=== PATIENT | female | born 1960 | race Caucasian/White ===

== ENCOUNTER 2023-04-09 15:16 | Outpatient (REF) | payer MEDICARE, MEDICAID, SELFPAY | END 2023-04-09 15:17 | disposition home or self-care (01) | LOC: HO.CHCLNP 15:16 | PROVIDERS: Visit Provider Internal Medicine | DX: L03.818 Cellulitis of other sites (principal) | CPT/HCPCS: 87070; 87077; 87186; 87205 ==

== ENCOUNTER 2023-05-31 08:02 | Outpatient (REF) | payer MEDICARE, MEDICAID, SELFPAY ==
[2023-05-31 14:11] LABS: MANUAL DIFF FLAG NO
[2023-05-31 14:31] LABS: Basophils Absolute Auto 0.1 X10*3/uL (0.0-0.2); Basophils Percent Auto 1.2 % (0-2); Eosinophils Absolute Auto 0.4 X10*3/uL (0.0-0.4); Eosinophils Percent Auto 5.4 % (0-4); Hematocrit 46.9 % (37.0-47.0); Hemoglobin 15.3 g/dl (12.0-16.0); Imm Gran Abs Auto 0.02 X10*3/uL (0.00-0.03); Imm Gran Pct Auto 0.3 % (0.0-0.4); Lymphocytes Absolute Auto 3.2 X10*3/uL (1.2-4.9); Lymphocytes Percent Auto 41.1 % (20-40); Mean Corpuscular HGB Conc 32.6 g/dl (31.0-35.0); Mean Platelet Volume 10.1 fL (9.4-12.3); Monocytes Absolute Auto 0.6 X10*3/uL (0.1-1.2); Monocytes Percent Auto 8.2 % (2-11); Neutrophils Absolute Auto 3.4 x10*3/uL (2.0-8.3); Neutrophils Percent Auto 43.8 % (45-73); Platelet Count 223 X10*3/uL (160-400); Red Cell Distribution Width 13.3 % (11.0-16.0); White Blood Count 7.8 X10*3/uL (4.8-10.8)
[2023-05-31 15:06] LABS: Alanine Aminotransferase 8 U/L (0-31); Albumin Level 4.4 g/dL (3.5-5.0); Alkaline Phosphatase 91 U/L (39-117); Anion Gap 15 (12-20); Aspartate Amino Transferase 14 U/L (5-31); Bilirubin Total 0.6 mg/dL (0.0-1.0); Blood Urea Nitrogen 13 mg/dL (9-16); Calcium 9.6 mg/dL (8.4-10.2); Carbon Dioxide 27 mmol/L (22-29); Chloride 107 mmol/L (96-108); Cholesterol 183 mg/dL (<200); Estimated Glomerular Filt Rate > 60; Glucose Fasting 75 mg/dL (60-99); HDL Cholesterol 40 mg/dL (>40); LDL Cholesterol Calculated 119 mg/dL (<100); Potassium 3.8 mmol/L (3.3-5.1); Sodium 145 mmol/L (135-145); Total Protein 7.4 g/dL (6.5-8.0); Triglycerides 120 mg/dL (<150)
[2023-05-31 15:14] LABS: TSH reflex Free T4 1.71 uIU/mL (0.32-4.0)
== END 2023-05-31 08:03 | disposition home or self-care (01) ==
LOC: HO.CHCLDS 08:02
PROVIDERS: Visit Provider Family Medicine
DX: E03.9 Hypothyroidism, unspecified (principal); E78.2 Mixed hyperlipidemia
CPT/HCPCS: 36415; 80053; 80061; 84443; 85025

== ENCOUNTER 2023-07-29 15:54 | Outpatient (REF) | payer MEDICARE, MEDICAID, SELFPAY ==
[2023-07-29 20:32] LABS: Influenza A PCR NEGATIVE (Negative); Influenza B PCR NEGATIVE (Negative); Resp Syncy Virus RNA Qual PCR NEGATIVE (Negative); SARS COV2 PCR INHOUSE NEGATIVE (Negative)
== END 2023-07-29 15:55 | disposition home or self-care (01) ==
LOC: HO.CHCLNP 15:54
PROVIDERS: Visit Provider Family Medicine
DX: J45.41 Moderate persistent asthma with (acute) exacerbation (principal)
CPT/HCPCS: 0241U

== ENCOUNTER 2023-08-09 08:37 | Outpatient (AMB) | payer MEDICARE, MEDICAID, SELFPAY ==
--- NOTE | 2023-08-09 08:43 | MHC.OFFVIS ---
Vital Signs 08/09/23 08:53 Height 5 ft 1 in Weight 156 lb BMI 29.5 BP 139/68 Blood Pressure Location Rt brachial Position Sitting Pulse 75 Intake Visit Reasons: soft tissue mass/lipoma back/shoulder Intake Note: Patient referred by PCP Dr. Condon for growths on Rt lower back and Lt shoulder. Present for yrs. Lipoma on Lt upper arm/ shoulder removed 30 yrs ago. Started growing back 5yrs ago. Patient c/o: concern because of multiple lipomas. Quoter Required: No Accompanied by: Self / Same As Patient Allergies No Known Allergies Allergy (Verified 08/09/23 08:55) HPI Comments Details: Patient presents for evaluation of several lipomas. She had a left shoulder lipoma excised several years ago but it has returned and increased in size. She also has 3 lower back lipomas which are symptomatic and she would like to have that removed as well. Chart was reviewed and patient evaluated [facility] Medical History (Updated 08/09/23 @ 08:58 by JULISSA Melissa) section wound complication Basal cell carcinoma of skin of left upper extremity, including shoulder Obesity (BMI 30-39.9) Mixed hyperlipidemia Fibromyalgia Hypothyroidism Moderate single current episode of major depressive disorder Anxiety Glaucoma Asthma Surgical History (Updated 08/09/23 @ 09:03 by Murray Julien MD) Tubal ligation status Hx of surgical procedure Social History (Updated 08/09/23 @ 08:59 by JULISSA Melissa) Patient Tobacco Use Status: Former Tobacco user Physical Exam Vital Signs: Last Vital Signs Pulse 75 08/09/23 08:53 BP 139/68 08/09/23 08:53 BMI result Body Mass Index 29.5 Chest Other: Chest breath sounds bilaterally, HS 1 in GI Other: Abdomen soft, corpulent, benign Back/Spine/Pelvis Other: Patient has a left deltoid scar from previous lipoma excision. She now has a recurrence of approximately 5 x 3 cm lipoma. Patient has 3 lipomas involving the lower back; upper measures 3 x 2 cm middle measures 3 x 3 and lower measures 3 x 2 cm respectively Assessment & Plan Assessment & Plan (1) Multiple lipomas: Code(s): D17.9 - Benign lipomatous neoplasm, unspecified Category: Surgical Plan Because of the number and size of these lipomas, my current recommendation is for excision and Ambulatory Surgical setting. Risks, benefits and alternatives of the procedure reviewed the patient included but not limited to bleeding, infection, recurrence, numbness, pain, scarring , seroma formation, wound dehiscence and the patient wishes to proceed. All questions answered. Arrangements were made for this. Coding Level of Care Code New Pt Level 5 (04934) Diagnoses Multiple lipomas D17.9
[2023-08-09 08:53] VITALS: BP 139/68; PULSE 75; BMI 29.5
== END 2023-08-09 09:17 | disposition home or self-care (01) ==
PROVIDERS: Visit Provider Surgery
DX: D17.9 Benign lipomatous neoplasm, unspecified (principal)
CPT/HCPCS: 99204

== ENCOUNTER → 2023-08-09 08:37 | Outpatient (BNVA) | payer MEDICARE, MEDICAID, SELFPAY | PROVIDERS: Visit Provider Surgery | DX: D17.9 Benign lipomatous neoplasm, unspecified (principal) | CPT/HCPCS: 99202 ==

== ENCOUNTER 2023-09-03 05:48 | Day surgery (SDC) | payer MEDICARE, MEDICAID, SELFPAY ==
[2023-08-31 10:48] VITALS: BMI 29.5
--- NOTE | 2023-09-02 09:37 | HO.ANESPROP2 ---
Documented by User: Elma Doan NP 09/02/23 09:38 HPI - Anesthesia Eval Consult details Narrative: 63yo F for Excision Left Shoulder Lipoma and Lower Back Lipoma x3 PMFSH Active Problems Active Problems: All Active Problems Multiple lipomas (Acute) Past Medical History Medical History section wound complication Basal cell carcinoma of skin of left upper extremity, including shoulder Obesity (BMI 30-39.9) Mixed hyperlipidemia Fibromyalgia Hypothyroidism Moderate single current episode of major depressive disorder Anxiety Glaucoma Asthma Surgical History Surgical History Hx of section Tubal ligation status Hx of surgical procedure Social History Social History Patient Tobacco Use Status: Former Tobacco user Are you DNR?: No Advance Directives: No Advance Directives Information Provided: Yes Nutrition Risks: No Nutritional Risk Meds Allergies Allergy/AdvReac Type Severity Reaction Status Date / Time No Known Allergies Allergy Verified 08/09/23 08:55 Home Medications ?Medication ?Instructions ?Recorded ?Confirmed ?Last Taken ?Type levothyroxine 137 mcg capsule 137 mcg PO DAILY 08/09/23 08/31/23 09/02/23 History rosuvastatin 40 mg tablet 40 mg PO DAILY 08/09/23 08/31/23 09/02/23 History albuterol sulfate 90 mcg/actuation 2 puff inhalation Q4-6H PRN 08/31/23 08/31/23 08/31/23 History aerosol inhaler (Ventolin HFA) Shortness Of Breath Or Wheezing fluticasone furoate 200 1 inh inhalation DAILY 08/31/23 08/31/23 08/31/23 History mcg/actuation blister powder for inhalation (Arnuity Ellipta) Exam Height,Weight and Vital Signs: Height 5 ft 1 in Weight 70.76 kg Pertinent Lab Results Pertinent Lab Results: Laboratory Tests 05/31/23 08:06 WBC 7.8 Hgb 15.3 Hct 46.9 Plt Count 223 Sodium 145 Potassium 3.8 Chloride 107 Carbon Dioxide 27 BUN 13 Creatinine 0.89 Assessment and Plan Assessment Anesthesia Assessment: Chart Reviewed Documented by User: Amber Guzman MD 09/03/23 08:05 PMFSH Active Problems Active Problems: All Active Problems Multiple lipomas (Acute) Hyperlipidemia Hypothyroidism Asthma - inhalers prn Past Medical History Medical History section wound complication Basal cell carcinoma of skin of left upper extremity, including shoulder Obesity (BMI 30-39.9) Mixed hyperlipidemia Fibromyalgia Hypothyroidism Moderate single current episode of major depressive disorder Anxiety Glaucoma Asthma Family History Family history of problems with anesthesia: No Surgical History Surgical History Hx of section Tubal ligation status Hx of surgical procedure History of Problems with Anesthesia: No Social History Social History Patient Tobacco Use Status: Former Tobacco user Are you DNR?: No Advance Directives: No Advance Directives Information Provided: Yes Nutrition Risks: No Nutritional Risk Meds Allergies Allergy/AdvReac Type Severity Reaction Status Date / Time No Known Allergies Allergy Verified 08/09/23 08:55 Home Medications ?Medication ?Instructions ?Recorded ?Confirmed ?Last Taken ?Type levothyroxine 137 mcg capsule 137 mcg PO DAILY 08/09/23 08/31/23 09/02/23 History rosuvastatin 40 mg tablet 40 mg PO DAILY 08/09/23 08/31/23 09/02/23 History albuterol sulfate 90 mcg/actuation 2 puff inhalation Q4-6H PRN 08/31/23 08/31/23 08/31/23 History aerosol inhaler (Ventolin HFA) Shortness Of Breath Or Wheezing fluticasone furoate 200 1 inh inhalation DAILY 08/31/23 08/31/23 08/31/23 History mcg/actuation blister powder for inhalation (Arnuity Ellipta) Exam Height,Weight and Vital Signs: Height 5 ft 1 in Weight 70.76 kg Vital Signs Temp Pulse Resp BP Pulse Ox O2 Del Method 09/03/23 06:07 98.4 F 94 18 152/86 H 97 Room Air Airway Mallampati Class: II TM Dist: >3cm Neck ROM: Full Loose/Missing/Broken Teeth: Yes (No teeth top, few teeth bottom. Denies broken or loose teeth) Heart: RRR Lungs: CTAB Assessment and Plan Assessment Anesthesia Assessment: Anesthesia Plan Discussed and Chart Reviewed Final Anesthetic Review Family History of Problems with Anesthesia: No History of Problems with Anesthesia: No NPO: Yes ASA Class: II Final Preanesthetic Review: No Changes in Pt Med Stat, Meds/Allgs Chart Reviewed, Consent Obtained/Reviewed and Anes Risks/Benef Reviewed Patient Risk: Low Procedure Risk: Low Assessment/Block/Sedation in SS: Assess/Block/Sedation-SS Anesthetic Plan Anesthetic Plan: GA Disposition: Standard PACU
--- NOTE | 2023-09-02 10:06 | MHC.SHP ---
Pre-Procedural Eval Section A - 24 Hr Update-Section A only Date of Service: 09/03/23 The patient is an INPATIENT: No Changes since office visit: No Cold of Flu in the past 2 weeks, No New Medical Problems, No Changes in Medication and No Patient answered all questions Section B - Complete if H&P > 30 days Chief Complaint: Benign lipomatous neoplasm, Allergies: Allergies Allergy/AdvReac Type Severity Reaction Status Date / Time No Known Allergies Allergy Verified 08/09/23 08:55 Plan I have reviewed the history and physical and performed a pertinent physical examination on my patient. No changes have occurred unless specified. Time Spent With Patient Time: Total time managing care of this patient today ____ minutes.
[2023-09-03 06:07] VITALS: BP 152/86; PULSE 94; RESP 18; TEMP 36.9; O2SAT 97; BMI 29.7
[2023-09-03] MEDS: Lactated Ringers 1,000 ML 100 ML IVCONT (06:30)
[2023-09-03 08:25] VITALS: BP 140/74; PULSE 88; RESP 18; TEMP 36.1; O2SAT 95
[2023-09-03 08:30] VITALS: BP 143/79; PULSE 83; RESP 16; O2SAT 95
[2023-09-03 08:35] VITALS: BP 143/79; PULSE 86; RESP 16; O2SAT 98
[2023-09-03 08:40] VITALS: BP 153/77; PULSE 77; RESP 16; O2SAT 98
--- NOTE | 2023-09-03 08:43 | P.OP_ITS ---
Operative Note Operative Note Date of Service: 09/03/23 Narrative: Preoperative diagnosis: [] Multiple lipomas; recurrent left shoulder lipoma, right lower back medial and lateral lipomas Postop diagnosis: [] The same Procedure [] 1. Wide local excision recurrent left shoulder lipoma final specimen measuring approximately 5 x 4 cm. Medial right lower back lipoma measuring approximately 3 x 3 cm. Lateral right lower back lipoma measured approximately 4 x 3 cm Surgeon: [] Wily Warehouse Sorter: [] Diego Type of Anesthesia: [] General Indication for surgery: [] Symptomatic lipomas with size/dimensions as noted above Findings: [] Patient brought to the operating room, placed on operative table supine position, after an adequate level of general anesthesia was induced, patient was placed in the right lateral decubitus position. Left posterior shoulder and back were all prepped and draped in usual sterile fashion. Each area was approached using transverse incision and carried down through skin, subcutaneous tissue, were uneventful excision of respective lipomas were performed. The left shoulder one was a recurrent lipoma which have been excised several years ago but had recurred. Each wound was irrigated, secured hemostasis, and closed using interrupted in verted dermal 3-0 Vicryl sutures followed by Steri-Strips sterile dressings. Patient tolerated procedure well and emerged from anesthesia stable condition. EBL minimal Sponge, needle, and instrument counts reported correct.
[2023-09-03 08:55] VITALS: BP 136/70; PULSE 86; RESP 16; TEMP 36.1; O2SAT 96
== END 2023-09-03 09:11 | disposition home or self-care (01) ==
PROVIDERS: PCP Family Medicine; Visit Provider Surgery
PROC: (CPT 24071; principal; 2023-09-03 07:30)
DX: D17.22 Benign lipomatous neoplasm of skin and subcutaneous tissue of left arm (principal); D17.1 Benign lipomatous neoplasm of skin and subcutaneous tissue of trunk
CPT/HCPCS: 24071; 21931 ×2; 88304; J0131; J0690; J1100; J2250; J2405; J2704; J2795; J3010

== ENCOUNTER → 2023-09-03 05:48 | Outpatient (BNV) | payer MEDICARE, MEDICAID, SELFPAY | PROVIDERS: PCP Family Medicine; Visit Provider Surgery | DX: D17.1 Benign lipomatous neoplasm of skin and subcutaneous tissue of trunk (principal); D17.22 Benign lipomatous neoplasm of skin and subcutaneous tissue of left arm | CPT/HCPCS: 21931; 23071 ==

== ENCOUNTER 2023-09-13 11:34 | Outpatient (AMB) | payer MEDICARE, MEDICAID, SELFPAY ==
--- NOTE | 2023-09-13 11:38 | A.OFFVIS_ITS ---
Intake Visit Reasons: S/P excision multiple lipomas Intake Note: Patient here s/p excision multiple lipomas. Lt shoulder, Rt lower back X2 (medial and lateral). Reports incisions healing well. Patient c/o: steri strips still present. Denies pain, oozing, redness. No longer taking rx pain meds. WLE: 09-03-23. Cut Off Saw Operator Metal Required: No Accompanied by: Self / Same As Patient Allergies No Known Allergies Allergy (Verified 09/13/23 11:39) HPI Comments Details: Patient presents for follow-up. She has no wound issues or complaints. All pathology reports are benign [facility] Medical History section wound complication Basal cell carcinoma of skin of left upper extremity, including shoulder Obesity (BMI 30-39.9) Mixed hyperlipidemia Fibromyalgia Hypothyroidism Moderate single current episode of major depressive disorder Anxiety Glaucoma Asthma Surgical History Multiple lipomas (09/03/23) Hx of section Tubal ligation status Hx of surgical procedure Social History Patient Tobacco Use Status: Former Tobacco user Physical Exam Skin Other: Left shoulder and right lower back incisions all clean dry and intact healing well Assessment & Plan Assessment & Plan (1) Postop check: Code(s): Z09 - Encounter for follow-up examination after completed treatment for conditions other than malignant neoplasm Category: Medical Plan Patient was been given local instructions, and will otherwise follow-up p.r.n.. All questions answered. Coding Level of Care Code Global (64908) Diagnoses Postop check Z09
== END 2023-09-13 11:43 | disposition home or self-care (01) ==
PROVIDERS: Visit Provider Surgery
DX: Z09 Encounter for follow-up examination after completed treatment for conditions other than malignant neoplasm (principal)
CPT/HCPCS: 99024

== ENCOUNTER → 2023-09-13 11:34 | Outpatient (BNVA) | payer MEDICARE, MEDICAID, SELFPAY | PROVIDERS: Visit Provider Surgery | DX: Z09 Encounter for follow-up examination after completed treatment for conditions other than malignant neoplasm (principal) | CPT/HCPCS: 99212 ==

== ENCOUNTER 2024-07-25 08:04 | Outpatient (REF) | payer MEDICARE, MEDICAID, SELFPAY ==
--- OUTSIDE RECORDS SUMMARY | 2024-07-25 08:09 | XMS_ITS | Encounter Summary ---
Author Organization [employer] Address [address] [facility] [address] [place] [address] Care Team Providers Care Nursing Project Coordinator Name Role Phone Rebekah Condon MD Primary Care Provider [phone] Reason for Visit * Reason Onset Date Comments Appointment Request 04/24/2024 Encounter Details Date Type Department Care Team ([facility] Contact Info) Description 04/24/2024 Telephone [facility] [address] [place], [place] [phone] Rebekah Condon MD [address] [place] [address] Appointment Request Social History Tobacco Use Types Packs/Day Years Used Date Smoking Tobacco: Former Cigarettes Q uit: 03/22/2012 Passive Smoke Exposure: Past Smokeless Tobacco: Never Alcohol Use Standard Drinks/Week Comments Never 0 (1 standard drink = 0.6 oz pur e alcohol) Depression Answer Date Recorded Patient Health Questionnaire-9 Score 0 08/26/2023 Patient Health Questionnaire-9 Score 0 08/26/2023 Last PHQ-9: Questionnaire Data Not on file 0 08/26/2023 Housing Stability Answer Date Recorded What is your housing situation today? I have margareth rosado 08/19/[address] you li ve. Do you have problems with any of the following? None of the above 08/19/2023 Food Insecurity Answer Date Recorded Within the past 12 months, y ou worried that your food would run out before you got money to buy more: Never True 08/19/2023 Within the past 12 months,th e food you bought just didn't last and you didn't have enough money to get more: Never True Transportation Answer Date Recorded In the past 12 months, has l ack of transportation kept you from medical appts, meetings, work or from getting things needed for daily living? No 08/19/2023 Utilities Answer Date Recorded In the past 12 months, has t he electric, gas, oil or water company threatened to shut off services in your home? No 08/19/2023 Depression Answer Date Recorded Patient Health Questionnaire-2 Score 0 08/26/2023 Comments Unknown Sex and Gender Information Value Date Recorded Sex Assigned at Female 01/19/2022 10:22 AM EDT Legal Sex Female 10:22 AM EDT Gender Identity Female 01/19/2022 10:22 AM EDT Sexual Orientation Straight 01/19/2022 10 :22 AM EDT documented as of this encounter Miscellaneous Notes * Telephone Encounter - April Argueta - 04/24/2024 11:01 AM EST Tc from pt requesting to schedule derm F/u. documented in this encounter Plan of Treatment Upcoming Encounters Date Type Department Care Team (Late st Contact Info) Description 08/04/2024 1:00 PM EDT Office Visit [facility] MED & PEDS [address] [place] [address] Rebekah Condon MD [address] [place] [address] 12/11/2024 10:00 AM EDT Office Visit [facility] ADULT DENTAL [address] [place] [address] Ezekiel Koch documented as of this encounter Visit Diagnoses Not on filedocumented in this encounter Additional Health Concerns Assessment Noted Time PHQ-9 Depression Total Score: 0 08/26/19 24 11:34 AM EDT documented as of this encounter Care Teams Nursing Project Coordinator Relationship Specialty Start Date End Date Rebekah Condon MD [address] [place] [id number] PCP - General Family Medicine 10/13/21 documented as of this encounter
--- OUTSIDE RECORDS SUMMARY | 2024-07-25 08:09 | XMS_ITS | Encounter Summary ---
Author Organization [employer] Address [address] [facility] [address] [place] [address] Care Team Providers Care Head Golf Coach Name Role Phone Rebekah Condon MD Primary Care Provider [phone] Encounter Details Date Type Department Care Team ([facility] Contact Info) Description 12/14/2022 Abstract [facility] MED [facility] PEDS [address] [place], [place] [phone] Rebekah Condon MD [address] [place] [address] Social History Tobacco Use Types Packs/Day Years Used Date Smoking Tobacco: Former Cigarettes Q uit: 03/22/2012 Passive Smoke Exposure: Past Smokeless Tobacco: Never Alcohol Use Standard Drinks/Week Comments Never 0 (1 standard drink = 0.6 oz pur e alcohol) Depression Answer Date Recorded Patient Health Questionnaire-9 Score 1 06/25/2022 Depression Answer Date Recorded Patient Health Questionnaire-2 Score 0 06/25/2022 Comments Unknown Sex and Gender Information Value Date Recorded Sex Assigned at Female 01/19/2022 10:22 AM EDT Legal Sex Female 10:22 AM EDT Gender Identity Female 01/19/2022 10:22 AM EDT Sexual Orientation Straight 01/19/2022 10 :22 AM EDT documented as of this encounter Plan of Treatment Upcoming Encounters Date Type Department Care Team ([facility] Contact Info) Description 08/04/2024 1:00 PM EDT Office Visit [facility] MED [facility] PED[facility] [address] [place], [place] [phone] Rebekah Condon MD [address] [place], [place] [phone] 12/11/2024 10:00 AM EDT Office Visit [facility] AD[facility] [address] [place] [address] Ezekiel Koch documented as of this encounter Visit Diagnoses Not on filedocumented in this encounter Additional Health Concerns Assessment Noted Time PHQ-9 Depression Total Score: 1 06/26/19 23 10:02 AM EDT documented as of this encounter Care Teams Head Golf Coach Relationship Specialty Start Date End Date Rebekah Condon MD [address] [place] [id number] PCP - General Family Medicine 10/13/21 documented as of this encounter
--- OUTSIDE RECORDS SUMMARY | 2024-07-25 08:10 | XMS_ITS | Encounter Summary ---
Author Organization [employer] Address [address] [facility] [address] [facility] [address] [place] [address] Care Team Providers Care Spin Table Operator Name Role Phone Rebekah Condon MD Primary Care Provider [phone] Encounter Details Date Type Department Care Team (Latest Contact Info) Description 07/21/2024 Travel Social History Tobacco Use Types Packs/Day Years Used Date Smoking Tobacco: Former Cigarettes Q uit: 03/22/2012 Passive Smoke Exposure: Past Smokeless Tobacco: Never Alcohol Use Standard Drinks/Week Comments Never 0 (1 standard drink = 0.6 oz pur e alcohol) Depression Answer Date Recorded Patient Health Questionnaire-9 Score 4 07/21/2024 Patient Health Questionnaire-9 Score 4 07/21/2024 Last PHQ-9: Questionnaire Data Not on file 0 07/21/2024 Housing Stability Answer Date Recorded What is your housing situation today? I have margareth rosado 08/19/[address] you li ve. Do you have problems with any of the following? None of the above 08/19/2023 Food Insecurity Answer Date Recorded Within the past 12 months, y ou worried that your food would run out before you got money to buy more: Sometimes True 2024 Within the past 12 months,th e food you bought just didn't last and you didn't have enough money to get more: Sometimes True 07/14/2024 Transportation Answer Date Recorded In the past [...] Answer Date Recorded Patient Health Questionnaire-2 Score 2 07/21/2024 Internet Access Answer Date Recorded Internet Access Q1 Yes 07/14/2024 Internet Access Q2 Not on file 07/14/2024 Comments Unknown Sex and Gender Information Value [...] Description 08/04/2024 1:00 PM EDT Office Visit [facility] MED & PEDS [address] [place] [address] Rebekah Condon MD [address] [place] [address] 12/11/2024 10:00 AM EDT Office Visit [facility] ADULT DENTAL [address] [place] [address] Ezekiel Koch documented as of this encounter Visit Diagnoses Not on filedocumented in this encounter Additional Health Concerns Assessment Noted Time PHQ-9 Depression Total Score: 4 07/22/19 25 9:40 AM EDT documented as of this encounter Care Teams Spin Table Operator Relationship Specialty Start Date End Date Rebekah Condon MD [address] [place] [id number] PCP - General Family Medicine 10/13/21 documented as of this encounter
--- OUTSIDE RECORDS SUMMARY | 2024-07-25 08:10 | XMS_ITS | Clinical Summary ---
Author Organization [employer] Address [address] [facility] [address] [place] [address] Care Team Providers Care Sample Cutter Name Role Phone Rebekah Condon MD Primary Care Provider [phone] Allergies No known active allergies Medications Blood Pressure kit Active triamcinolone (Kenalog) 0.5 % ointment Apply 1 application topically in the morning and at bedtime. Appy by topical route 2 times every day a thin layer to the affected area Active Arnuity Ellipta 200 MCG/ACT inhaler INHALE 1 PUFF IN THE MORNING. RINSE MOUTH WITH WATER AFTER USE TO REDUCE AFTERTASTE AND INCIDENCE OF CANDIDIASIS. DO NOT SWALLOW. 30 each 11 4 Active ibuprofen 400 MG tablet Take 1 tablet (400 mg) by mouth every 6 (six) hours if needed for moderate pain or fever for up to 30 doses. 30 tablet 4 Active albuterol 108 (90 Base) MCG/ACT inhalerIndicati ons:Asthma, unspecified asthma severity, unspecified whether complicated, unspecified whether persistent INHALE 2 PUFFS BY MOUTH EVERY 4 TO 6 HOURS NEEDED 8.5 g 5 4 Active levothyroxine (Synthroid, Levoxyl) 137 MCG tablet TAKE 1 TABLET BY MOUTH EVERY DAY 90 tablet 1 5 Active rosuvastatin (Crestor) 40 MG tablet TAKE 1 TABLET BY MOUTH EVERY DAY IN THE MORNING 90 tablet 1 5 Active pregabalin (Lyrica) 75 MG capsule Take 1 capsule (75 mg) by mouth 2 times daily. 60 capsule 2 5 Active gabapentin (Neurontin) 300 MG capsule Take 1 capsule (300 mg) by mouth at bedtime. 90 capsule 1 5 025 Discontin ued(Side effects) Active Problems Problem Noted Date Diagnosed Date RLS (restless legs syndrome) 07/21/2024 Elevated blood pressure reading 07/21/2024 Multiple lipomas 07/19/2024 Basal cell carcinoma (BCC) o f skin of left upper extremity including shoulder 07/29/2023 Assessment & Plan (08/26/2023 1:33 PM EDT): Pt was able to see physician, however, no surgery date has been determined as of yet. -F/u on details with pt during next visit Assessment & Plan (07/29/2023 3:53 PM EDT): Patient has biopsy proven recurrent of BCC, a referral was 06/14/[address] Koch to be sent for Mohs surgery, contacted referral department unclear why referral was cancelled, they work on the referral. Soft tissue mass 05/31/2023 Assessment & Plan (08/26/2023 1:25 PM EDT): Pt will be having surgery for four Lipomas on September 02 Assessment & Plan (07/29/2023 3:52 PM EDT): Patient referred to general surgeon for soft tissue mass, suspected lipomas on right lower back and left shoulder, [place] [facility] [place] & Plan (05/31/2023 10:46 PM EDT): Patient referred to general surgeon for soft tissue mass, suspected lipomas on right lower back and left shoulder Acquired hypothyroidism 02/25/2022 Assessment & Plan (06/25/2022 10:41 AM EDT): Will check levels. Fibromyalgia 02/25/2022 Mild intermittent asthma 02/25/2022 Mixed hyperlipidemia 02/25/2022 Obesity (BMI 30-39.9) 02/25/2022 Anxiety 01/25/2017 Moderate single current epis ode of major depressive disorder 01/25/2017 Asthma 07/07/2013 Assessment & Plan (08/26/2023 1:28 PM EDT): Course of treatment has been successful and pt asthma's exacerbations have improved. Assessment & Plan (07/29/2023 3:51 PM EDT): Patient has severe asthma exacerbation, will prescribe prednisone and azithromycin given bronchial element. RTC if no improvement, rapid testing are negative Assessment & Plan (06/25/2022 10:41 AM EDT): Will send steroid burst and will start on ICS, informed patient that if insurance doesn't cover to please inform us to do start a PA process or find alternatives. Glaucoma 07/07/2013 Encounters Date Type Department Care Team Description 07/24/2024 Telephone [facility] [address] [place] [address] Rebekah Condon MD Nurse Triage; Medication Question 07/21/2024 9:45 AM EDT Office Visit [facility] [address] [place] [address] Rebekah Condon MD RLS (restless legs syndrome) (Primary Dx); Fibromyalgia; Abnormal finding of blood chemistry, unspecified; Abnormal levels of other serum enzymes; Acquired hypothyroidism; Elevated blood pressure reading 07/21/2024 Travel 07/14/2024 Patient Outreach [facility] [address] [place] [address] [phone] Rebekah Condon MD Care Coordination ([facility] outreach for SDOH PT-1 and food needs-LVM ) 07/14/2024 Patient Outreach [address] [address] Rebekah Condon MD Pre-visit Planning (SDOH screening positive and Tobacco screening negative) 06/20/2024 10:30 AM EDT Office Visit [facility] [address] [place] [address] Jesus Koch MD Basal cell carcinoma (BCC) of skin of left upper extremity including shoulder (Primary Dx) 06/20/2024 Travel 06/18/2024 Refill [facility] [address] [place] [address] Rebekah Condon MD 06/07/2024 10:00 AM EDT Office Visit [facility] [address] [place] [address] Ezekiel Koch Dental calculus (Primary Dx) 06/02/2024 Population Health Risk Score [facility] () Department [address] [place] [phone] Provider, Population Health Generic 04/30/2024 Refill [facility] [address] [place] [address] Iza Victor MD from Last 3 Months Immunizations Name Administration Dates Next Due Influenza Injectable Quadriv alant Preservative Free IIV4 MDCK 12/01/2021,02/11/2021,11/29/2018,2016 Influenza Whole 04/25/2009 Influenza injectable quadriv alent preservative free 11/05/2022,11/29/2017,11/12/2015 Influenza, IIV3, injectable 11/29/2018,0 12/19/2017,02/01/2013,2011,12/25/2009 Influenza, seasonal, injecta ble, preservative free 03/17/2024 Pneumococcal Conjugate PCV 20 11/05/2022 Td (adult), unspecified 12/26/2008 Tdap 11/24/2016 Zoster, Recombinant 11/03/2022,08/31/2022 Social History Tobacco Use Types Packs/Day Years Used Date Smoking Tobacco: Former Cigarettes Q uit: 03/22/2012 Passive Smoke Exposure: Past Smokeless Tobacco: Never Tobacco Cessation:Counseling Given: Not Answered Alcohol Use Standard Drinks/Week Comments Never 0 (1 standard drink = 0.6 oz pur e alcohol) Depression Answer Date Recorded Patient Health Questionnaire-9 Score 4 07/21/2024 Patient Health Questionnaire-9 Score 4 07/21/2024 Last PHQ-9: Questionnaire Data Not on file 0 07/21/2024 Housing Stability Answer Date Recorded What is your housing situation today? I have margareth sing 08/19/[address] you li [...] Orientation Straight 01/19/2022 10 :22 AM EDT Last Filed Vital Signs Vital Sign Reading Time Taken Comments Blood Pressure 146/74 07/21/2024 10:19 AM EDT Pulse 62 07/21/2024 9:32 AM EDT Temperature 36.7 ??C (98.1 ??F) 07/21/2024 9:32 AM ED T Respiratory Rate 18 07/21/2024 9:32 AM EDT Oxygen Saturation 98% 07/21/2024 9:32 AM EDT Inhaled Oxygen Concentration - - Weight 69.1 kg (152 lb 6.4 oz) 07/21/2024 9:32 A M EDT Height 158 cm (5' 2.21 ) 07/21/2024 9:32 AM EDT Body Mass Index 27.69 07/21/2024 9:32 AM EDT Plan of Treatment Upcoming Encounters Date Type Department Care Team (Late st Contact Info) Description 08/04/2024 1:00 PM EDT Office Visit [facility] [address] [place] [address] Rebekah Condon MD [address] [place] [address] 12/11/2024 10:00 AM EDT Office Visit [facility] [address] [place] [address] Ezekiel Koch Health Maintenance Due Date Last Done Comments CT Colonography 1959 Colonoscopy 1959 FIT 1959 FOBT 1959 HIV Screening 1959 Sigmoidoscopy 1959 Derm Melanoma Skin Check 02/16/1960 Hepatitis C Screening 08/15/1977 Pap Smear 08/15/1980 Cervical Cancer Screening 08/15/1989 HPV/Cotest 08/15/1989 Mammogram 1999 RSV Patients and Patients Aged 60 years or older (1 - Risk 60-74 years 1-dose series) 2019 Dental X-Ray: Bitewings 08/26/2019 08/25/19, 06/15/2017, 04/29/2016, Additional history exists Dental X-Ray: Full Mouth 12/28/2022 12/28/2019, 05/20 Dental Oral Exam 12/09/2024 06/07/2024, , 06/28/2020, Additional history exists Dental Prophylaxis 12/09/2024 06/07/2024, 0 06/03/2023, 02/28/2019, Additional history exists SDOH Screening 07/14/2025 07/14/2024 Alcohol/Substance Use Screening 07/21/2025 07/21/2024 Depression Screening 07/21/2025 07/21/2024, 07/22/19 Tobacco Screening 07/21/2025 07/21/2024 Colorectal Cancer Screening 06/07/2026 FIT DNA/Cologuard 06/07/2026 06/08/2023 DTaP/Tdap/Td Vaccines (2 - Td or Tdap) 11/24/2026 11/24/2016, 12/26/2008 Lipid Panel 05/30/2028 05/31/2023, 10/17/2021 Zoster Vaccines Completed 11/03/2022, 08/31/2022 Pneumococcal Vaccine: 50+ Years Completed 11/05/2022 COVID-19 Vaccine Completed 03/17/2024, , 12/01/2021, Additional history exists Influenza Vaccine Completed 03/17/2024, , 12/01/2021, Additional history exists HIB Vaccines Aged Out No longer eligi ble based on patient's age to complete this topic HPV Vaccines Aged Out No longer eligi ble based on patient's age to complete this topic Hepatitis A Vaccines Aged Out No long er eligible based on patient's age to complete this topic Hepatitis B Vaccines Aged Out No long er eligible based on patient's age to complete this topic IPV Vaccines Aged Out No longer eligi ble based on patient's age to complete this topic Meningococcal Vaccine Aged Out No elpidio chaz eligible based on patient's age to complete this topic RSV under 20 months Aged Out No longe r eligible based on patient's age to complete this topic Rotavirus Vaccines Aged Out No longer eligible based on patient's age to complete this topic Procedures Procedure Name Priority Date/Time Associated Diagnosis Comments PERIODIC ORAL EVALUATION - ESTABLISHED PATIENT Routine 06/07/2024 10:00 AM EDT COMPREHENSIVE PERIODONTAL EVALUATION - NEW OR ESTABLISHED PATIENT Routine 06/07/2024 10:00 AM EDT INTRAORAL - PERIAPICAL EACH ADDITIONAL RADIOGRAPHIC IMAGE Routine 06/07/2024 10:00 AM EDT INTRAORAL - PERIAPICAL EACH ADDITIONAL RADIOGRAPHIC IMAGE Routine 06/07/2024 10:00 AM EDT INTRAORAL - PERIAPICAL EACH ADDITIONAL RADIOGRAPHIC IMAGE Routine 06/07/2024 10:00 AM EDT INTRAORAL - PERIAPICAL FIRST RADIOGRAPHIC IMAGE Routine 06/07/2024 10:00 AM EDT ORAL HYGIENE INSTRUCTIONS Routine 06/07/2024 10:00 AM EDT Full PROPHYLAXIS - ADULT Routine 06/07/2024 10:00 AM EDT CASE PRESENTATION, DETAILED AND EXTENSIVE TREATMENT PLANNING Routine 06/07/2024 10:00 AM EDT LAB COLOGUARD?? COLON CANCER SCREEN Routine 06/08/2023 7:05 AM EDT Colon cancer screening LIPID PANEL, STANDARD Routine 05/31/2023 8:06 AM EDT Neoplasm of uncertain behavior PANORAMIC RADIOGRAPHIC IMAGE Routine 12/28/2019 12:00 AM EDT BITEWINGS - 4 RADIOGRAPHIC IMAGES Routine 08/24/2018 12:00 AM EDT from Last 3 Months or Most Recently Relevant to Health Maintenance Results * Cologuard?? colon cancer screening (06/08/2023 7:05 AM EDT) Cologuard Result Negative Negative 06/15/19 6:09 PM EDT [facility] (CLIA #:[id number]) Comment: NEGATIVE TEST RESULT. A negative Cologuard result indicates a low likelihood that a colorectal cancer (CRC) or advanced adenoma (adenomatous polyps with more advanced pre-malignant features) ??is present. The chance that a person with a negative Cologuard test has a colorectal cancer is less than 1 in 1500 (negative predictive value >99.9%) or has an ??advanced adenoma is less than ??5.3% (negative predictive value 94.7%). These data are based on a prospective cross-sectional study of 10,000 individuals at average risk for colorectal cancer who were screened with both Cologuard and colonoscopy. (Domingo Manriquez al, N Engl J Med 2014;370(14):1286- 1297) The normal value (reference range) for this assay is negative. COLOGUARD RE-SCREENING RECOMMENDATION: Periodic colorectal cancer screening is an important part of preventive healthcare for asymptomatic individuals at average risk for colorectal cancer. ??Following a negative Cologuard result, the [place] [employer] and U.S. Multi-Society Task Force screening guidelines recommend a Cologuard re-screening interval of 3 years. References: [place] [employer] Guideline for Colorectal Cancer Screening: https://www.cancer.org/cancer/fotlq-axbalf-dexxaj/bchheclad-bwqqtltka-fasjqdc/ac s-rec ommendations.html.; John DK, Cassidy CR, Josh RiddleK, Colorectal Cancer Screening: Recommendations for Physicians and Patients from the U.S. Multi-Society Task Force on Colorectal Cancer Screening , Am J Gastroenterology 2017; 112:7423-4637. TEST DESCRIPTION: Composite algorithmic analysis of stool DNA-biomarkers with hemoglobin immunoassay. ?? Quantitative values of individual biomarkers are not reportable and are not associated with individual biomarker result reference ranges. Cologuard is intended for colorectal cancer screening of adults of either sex, 45 years or older, who are at average-risk for colorectal cancer (CRC). Cologuard has been approved for use by the U.S. FDA. The performance of Cologuard was established in a cross sectional study of average-risk adults aged 50-84. Cologuard performance in patients ages 45 to 49 years was estimated by sub-group analysis of near-age groups. Colonoscopies performed for a positive result may find as the most clinically significant lesion: colorectal cancer [4.0%], advanced adenoma (including sessile serrated polyps greater than or equal to 1cm diameter) [20%] or non- advanced adenoma [31%]; or no colorectal neoplasia [45%]. These estimates are derived from a prospective cross-sectional screening study of 10,000 individuals at average risk for colorectal cancer who were screened with both Cologuard and colonoscopy. (Domingo Manriquez al, N Engl J Med 2014;370(14):1072-8999.) Cologuard may produce a false negative or false positive result (no colorectal cancer or precancerous polyp present at colonoscopy follow up). A negative Cologuard test result does not guarantee the absence of CRC or advanced adenoma (pre-cancer). The current Cologuard screening interval is every 3 years. ([place] [employer] and U.S. Multi-Society Task Force). Cologuard performance data in a 10,000 patient pivotal study using colonoscopy as the reference method can be accessed at the following location: www.[employer]/results. Additional description of the Cologuard test process, warnings and precautions can be found at www.[employer].com. Stool specimen (specimen) 06/08/2023 7:05 AM EDT 06/10/2023 1:11 PM EDT us Rebekah Condon MD LAB MOLECULAR DIAGNOSTICS ORD ERABLES Final Result [facility] (CLIA #:[id number]) [address] [place] [id number], * (ABNORMAL) Lipid Panel, Standard (05/31/2023 8:06 AM EDT) Triglycerides 120 <150 mg/dL [facility] Comment:Desirable Triglyceri de: less than 150 mg/dLBorderline High Triglyceride 150-199 mg/dLHigh Triglyceride: 200-499 mg/dLVery High Triglyceride: greater than or equal to 5OO mg/dL Cholesterol 183 <200 mg/dL [facility] Comment:Desirable Cholestero l: less than 200 mg/dLBorderline High Cholesterol: 200-239 mg/dLHigh Cholesterol: greater than 239 mg/dL LDL Cholesterol Calculated 119(H) <100 mg/dL [facility] Comment:Desirable LDL: less than 100 mg/dLNear Optimal/Above Optimal LDL: 110- 129 mg/dLBorderline High LDL: 130-159 mg/dLHigh LDL: 160-189 mg/dLVery High LDL: greater than or equal to 190 mg/dL HDL Cholesterol 40(L) >40 mg/dL [facility] Comment:Desirable HDL: great er than 40 mg/dL Note: This HDL assay may give artificially low results in patients with liver disease. 05/31/2023 8:06 AM EDT 05/31/2023 2:07 PM EDT us Rebekah Condon MD LAB BLOOD ORDERABLES Final Re sult [facility] [address] [place] [address] [phone] from Last 3 Months or Most Recently Relevant to Health Maintenance Insurance [facility] MEDICARE [place] ST[place] ADULT Care Teams Sample Cutter Relationship Specialty Start Date End Date Rebekah Condon MD [address] [place] [phone] PCP - General Family Medicine 10/13/21
--- OUTSIDE RECORDS SUMMARY | 2024-07-25 08:10 | XMS_ITS | Encounter Summary ---
Author Organization [employer] Address [address] [facility] [address] [place] [address] Care Team Providers Care Packager Machine Name Role Phone Rebekah Condon MD Primary Care Provider Reason for Visit * Reason Comments Lipoma Fibromyalgia Encounter Details Date Type Department Care Team ([facility] st Contact Info) Description 07/21/2024 9:45 AM EDT Office Visit [facility] MED [facility] PEDS [address] [place] [address] Rebekah Condon MD [address] [place] [address] RLS (restless legs syndrome) (Primary Dx); Fibromyalgia; Abnormal finding of blood chemistry, unspecified; Abnormal levels of other serum enzymes; Acquired hypothyroidism; Elevated blood pressure reading Social History Tobacco Use Types Packs/Day Years [...] AM EDT documented as of this encounter Last Filed Vital Signs Vital Sign Reading [...] Mass Index 27.69 07/21/2024 9:32 AM EDT documented in this encounter Progress Notes * Rebekah Condon MD - 07/21/2024 9:45 AM EDT Subjective Patient ID: Omayra Summers is a 63 y.o. female who presents for Lipoma and Fibromyalgia. Omayra Alcantar, a patient with a history of fibromyalgia and thyroid problems, presents with complaints of widespread muscle pain and restless leg syndrome. She reports experiencing excruciating backpain when she is on her feet for too long, particularly during holidays or extended periods of activity. The patient describes her fibromyalgia pain as affecting her whole body. Regarding her restless leg syndrome, Omayra reports that it is particularly bothersome at night, describing it as really, really bad, where they just want to move, they just can't. She mentions that sometimes her legs become spastic when she elevates them. The patient does not recall if any previous medications have been helpful for her fibromyalgia pain. Omayra also mentions having tumors on her back that were previously addressed surgically, but she expresses dissatisfaction with the procedure and outcome. She states, I don't even know if he got itin the right place because I still feel them. The patient reports feeling multiple lumps on her back, which she believes may be lipomas. The patient discloses recent psychosocial stressors, including the of her sister from a tumornear the spinal cord last year, which she describes as devastating. She also mentions concerns about her 's declining hearing and memory, as well as his HIV status, for which she helps manage his medications. Omayra expresses a preference for minimal medication use, noting that she currently only takes two medications and sometimes forgets to take them. She declines physical therapy at this time, stating, I don't really think I need physical therapy. I'm mostly home. Review of Systems General: Positive for whole body pain. Musculoskeletal: Positive for back pain, muscle pain, and fibromyalgia symptoms. Neurological: Positive for restless leg syndrome. Psychiatric: Positive for emotional distress. Objective Visit Vitals BP (!) 146/74 (BP Location: Left arm, Patient Position: Sitting, BP Cuff Size: Adult) Pulse 62 Temp 98.1 ??F (36.7 ??C) (Oral) Resp 18 Ht 5' 2.21 (1.58 m) Wt 152 lb 6.4 oz (69.1 kg) SpO2 98% BMI 27.69 kg/m?? Smoking Status Former BSA 1.74 m?? Physical Exam Constitutional: General: She is not in acute distress. Appearance: She is not ill-appearing. HENT: Head: Normocephalic and atraumatic. Nose: No congestion. Pulmonary: Effort: Pulmonary effort is normal. No respiratory distress. Breath sounds: Normal breath sounds. Musculoskeletal: Cervical back: Normal range of motion. Neurological: General: No focal deficit present. Mental Status: She is alert. Psychiatric: Mood and Affect: Mood normal. Left sided subQ mass Assessment/Plan Problem List Items Addressed This Visit Acquired hypothyroidism Relevant Orders TSH W/Reflex to FT4 Fibromyalgia RLS (restless legs syndrome) - Primary Relevant Orders CBC auto differential Ferritin Iron And Total Iron Binding Capacity Vitamin B12 (Cobalamin) and Folate Panel, Serum TSH W/Reflex to FT4 Elevated blood pressure reading Other Visit Diagnoses Abnormal finding of blood chemistry, unspecified Relevant Orders Ferritin Abnormal levels of other serum enzymes Relevant Orders Iron And Total Iron Binding Capacity Fibromyalgia Assessment: Patient reports widespread muscle pain, particularly exacerbated by prolonged standing or activity. She describes the pain as excruciating in her back and notes that even her hair hurts. The patient has a history of fibromyalgia and has tried various medications in the past, though she does not recall which ones were effective. She expresses a preference for minimal medication use. Plan: - Start gabapentin 300 mg PO at bedtime for fibromyalgia pain management - Discussed potential side effects of gabapentin, including dizziness, dry mouth, memory issues, and swelling - Instructed patient to discontinue medication if side effects occur - Offered physical therapy as an option, but patient declined at this time - Follow-up in 2 weeks to assess medication efficacy and tolerability - Consider alternative medications (e.g., Lyrica) if gabapentin is ineffective or not tolerated Suspected Restless Leg Syndrome Assessment: Patient reports symptoms consistent with restless leg syndrome, describing it as really, really bad at night with an urge to move her legs. She also mentions experiencing leg spasms when elevating her legs. Plan: - Order labs to check iron levels and thyroid function - Initiate gabapentin 300 mg PO at bedtime (same medication as for fibromyalgia) - Reassess symptoms at 2-week follow-up appointment Lipomas Assessment: Patient reports multiple lipomas on her back, which were previously evaluated by a diploma medical assistant. She expresses dissatisfaction with the previous surgeon's approach and is hesitant about further intervention. On examination, multiple small, soft tissue masses were palpated on the patient's back, consistent with lipomas. Plan: - Observe lipomas for any changes or symptoms - Patient to report if lipomas become painful or bothersome - Offer referral to a different surgeon if patient desires further evaluation or treatment in the future Elevated BP Assessment: Blood pressure measured during the visit was 146/74 mmHg. Plan: - Monitor blood pressure at future visits - Check thyroid function as part of ordered labs - Reassess blood pressure at follow-up appointment documented in this encounter Plan of Treatment Upcoming Encounters Date Type Department Care Team (Late st Contact Info) Description 08/04/2024 1:00 PM EDT Office Visit [facility] MED & PEDS [address] [place] [address] Rebekah Condon MD [address] [place] [address] 12/11/2024 10:00 AM EDT Office Visit [facility] ADULT DENTAL [address] [place] [address] Ezekiel Koch Scheduled Orders Name Type Priority Associated Diagnoses Orde r Schedule CBC auto differential Lab Routine RLS (restless legs syndrome) Expected: 07/21/2024 (Approximate), Expires: 07/21/2025 Ferritin Lab Routine RLS (restless legs syndrome) Abnormal finding of blood chemistry, unspecified Expected: 07/21/2024 (Approximate), Expires: 07/21/2025 Iron And Total Iron Binding Capacity Lab Routine RLS (restless legs syndrome) Abnormal levels of other serum enzymes Expected: 07/21/2024, Expires: 07/21/2025 Vitamin B12 (Cobalamin) and Folate Panel, Serum Lab Routine RLS (restless legs syndrome) Expected: 07/21/2024 (Approximate), Expires: 07/21/2025 TSH W/Reflex to FT4 Lab Routine RLS (restless legs syndrome) Acquired hypothyroidism Expected: 07/21/2024 (Approximate), Expires: 07/21/2025 documented as of this encounter Visit Diagnoses Diagnosis RLS (restless legs syndrome)- Primary Restless legs syndrome (RLS) Fibromyalgia Unspecified myalgia and myositis Abnormal finding of blood chemistry, unspecified Abnormal levels of other serum enzymes Acquired hypothyroidism Unspecified hypothyroidism Elevated blood pressure reading Elevated blood pressure reading without diagnosis of hypertension documented in this encounter Additional Health Concerns Assessment Noted Time PHQ-9 Depression Total Score: 4 07/22/19 25 9:40 AM EDT documented as of this encounter Care Teams Packager Machine Relationship Specialty Start Date End Date Rebekah Condon MD [address] [place] [address] PCP - General Family Medicine 10/13/21 documented as of this encounter
--- OUTSIDE RECORDS SUMMARY | 2024-07-25 08:10 | XMS_ITS | Encounter Summary ---
Author Organization [employer] Address [address] [facility] [address] [place] [address] Care Team Providers Care Paint Maker Name Role Phone Rebekah Condon MD Primary Care Provider [phone] Encounter Details Date Type Department Care Team (Latest Contact Info) Description 08/19/2018 Abstract [facility] Dental, Provider, DDS Social History Tobacco Use Types Packs/Day Years Used Date Smoking Tobacco: Never Assessed Comments Unknown Sex and Gender Information Value [...] [facility] [address] [place] [address] Rebekah Condon MD [address] [place] [address] 12/11/2024 10:00 AM EDT Office Visit [facility] ADULT DENTAL [address] [place] [address] Ezekiel Koch documented as of this encounter Visit Diagnoses Not on filedocumented in this encounter Care Teams Paint Maker Relationship Specialty Start Date End Date Rebekah Condon MD [address] [place] [id number] PCP - General Family Medicine 10/13/21 documented as of this encounter
--- OUTSIDE RECORDS SUMMARY | 2024-07-25 08:10 | XMS_ITS | Encounter Summary ---
Author Organization [employer] Address [address] [facility] [address] [place] [address] Care Team Providers Care Retail Pos Specialist Name Role Phone Rebekah Condon MD Primary Care Provider [phone] Encounter Details Date Type Department Care Team (Latest Contact Info) Description 06/28/2020 Abstract [facility] CONVERSION[facility] Dental, Provider, DDS Social History Tobacco [...] Description 08/04/2024 1:00 PM EDT Office Visit [facility] MED & PEDS [address] [place] [address] Rebekah Condon MD [address] [place] [address] 12/11/2024 10:00 AM EDT Office Visit [facility] ADULT DENTAL [address] [place] [address] Ezekiel Koch documented as of this encounter Visit Diagnoses Not on filedocumented in this encounter Care Teams Retail Pos Specialist Relationship Specialty Start Date End Date Rebekah Condon MD [address] [place] [address] PCP - General Family Medicine 10/13/21 documented as of this encounter
--- OUTSIDE RECORDS SUMMARY | 2024-07-25 08:10 | XMS_ITS | Encounter Summary ---
Author Organization [employer] Address [address] [facility] 7 [place] [address] Care Team Providers Care Tactical Air Defense Controller Name Role Phone Rebekah Condon MD Primary Care Provider [phone] Encounter Details Date Type Department Care Team (Latest Contact Info) Description 02/28/2019 Abstract [facility] CONVERSION[facility] Dental, Provider, DDS Social History [...] Description 08/04/2024 1:00 PM EDT Office Visit [facility] [address] [place] [address] Rebekah Condon MD [address] [place] [address] 12/11/2024 10:00 AM EDT Office Visit [facility] AD[facility] D[facility] [address] [place] [address] Ezekiel Koch documented as of this encounter Visit Diagnoses Not on filedocumented in this encounter Care Teams Tactical Air Defense Controller Relationship Specialty Start Date End Date Rebekah Condon MD [address] [place] [address] PCP - General Family Medicine 10/13/21 documented as of this encounter
--- OUTSIDE RECORDS SUMMARY | 2024-07-25 08:10 | XMS_ITS | Encounter Summary ---
Author Organization [employer] Address [address] [facility] [address] [place] [address] Care Team Providers Care Church Organist Name Role Phone Rebekah Condon MD Primary Care Provider [phone] Reason for Visit * Reason Onset Date Comments Nurse Triage 07/24/2024 Medication Question 07/24/2024 Encounter Details Date Type Department Care Team ([facility] st Contact Info) Description 07/24/2024 Telephone [facility] MED [facility] PEDS [address] [place], [place] [id number] Rebekah Condon MD [address] [place] [address] Nurse Triage; Medication Question Social History Tobacco Use Types Packs/Day Years [...] is your housing situation today? I have margarethbrittany rosado 08/19/[address] you [...] encounter Miscellaneous Notes * Telephone Encounter - Kandi Sen RN - 07/24/2024 12:23 PM EDT TC to pt to let her know that she needs to discontinue her gabapentin and she will send her in a trail of Lyrica. This will need a PA so it is being sent to the PA specialist. Pt verbalized understanding and agreement with the plan of care. * Telephone Encounter - Rebekah Condon MD - 07/24/2024 12:14 PM EDT =Note Reviewed note. Given side effects with gabapentin will need to discontinue. Started on this medication for RLS andfibromyalgia, send trial of Lyrica, will need PA, will forward to PA specialist. * Telephone Encounter - Rebekah Condon MD - 07/24/2024 12:12 PM EDT Reviewed note. Given side effects with gabapentin will need to discontinue. Started on this medication for RLS andfibromyalgia, send trial of Lyrica, will need PA, will forward to PA specialist. * Telephone Encounter - Adry Bauman RN - 07/24/2024 11:55 AM EDT Images from the original note were not included. Call returned to Omayra Summers to triage below portal message forwarded by primary care team. Perchart review pt seen by PCP On 07/21/24, started on Gabapentin 300mg nightly. Per pt after first dosenoticed onset of bilateral hand swelling. Pt last dose taken on Wednesday. Per pt bilateral hand swelling has reduced some. No swelling of lower extremities. No SOB or CP. Denies any swelling of face.No rash or redness on hands. Pt has not completed blood work that was ordered. Plan is to come in tomorrow morning to have blood drawn. Pt offered SDC appt today. Pt states just wishes to have PCP updated and return call with plan of care. Will forward to PCP and team for follow up. Reviewed home care advise, ER precautions and reasons to call back. Protocol Used: Medication Question Call (Adult) Protocol-Based Disposition: Discuss with PCP and Callback by Nurse within 1 Hour Video visit offer not recorded Positive Triage Question: * Caller has URGENT medicine question about med that PCP or specialist prescribed and triager unable to answer question * All higher-acuity triage questions were negative Gricelda Parks RN routed conversation to [place] Triage Nurse2 hours ago (9:38 AM) Omayra Johnson [facility] Med & Peds Nurses (supporting Rebekah Condon MD)2 hours ago (9:28 AM) EF I had a allergic reaction to the pain medication and stopped taking it,it made my hands swollen andmy left arm hurt more I tried to call but was on hold and then they hung up on me so I thought it would be easier to message you documented in this encounter Plan of Treatment Upcoming Encounters Date Type Department Care Team (Late st Contact Info) Description 08/04/2024 1:00 PM EDT Office Visit [facility] MED & PEDS [address] [place] [address] Rebekah Condon MD [address] [place] [address] 12/11/2024 10:00 AM EDT Office Visit [facility] ADULT DENTAL [address] [place] [address] Ezekiel Koch documented as of this encounter Visit Diagnoses Not on filedocumented in this encounter Additional Health Concerns Assessment Noted Time PHQ-9 Depression Total Score: 4 07/22/19 25 9:40 AM EDT documented as of this encounter Care Teams Church Organist Relationship Specialty Start Date End Date Rebekah Condon MD [address] [place] [address] PCP - General Family Medicine 10/13/21 documented as of this encounter
--- OUTSIDE RECORDS SUMMARY | 2024-07-25 08:10 | XMS_ITS | Encounter Summary ---
Author Organization [employer] Address [address] [place] [id number] Care Team Providers Care Vending Mechanic Name Role Phone Rebekah Condon MD Primary Care Provider [phone] Reason for Referral * Consultation (Routine) - Canceled Specialty Diagnoses / Procedures Referred By Jose gray Referred To Contact Plastic Surgery Diagnoses Neoplasm of uncertain behavior Jesus Koch MD [address] [place] [address] Phone: tel: fax: Referral ID Status Reason Start Date Expiration Date Visits Requested Visits Authorized [id number] Canceled Specialty Services Required 06/14/2023 06/13/2024 1 1 * Consultation (Routine) - Canceled Specialty Diagnoses / Procedures Referred By Jose gray Referred To Contact Pediatric Surgery Diagnoses Neoplasm of uncertain behavior Jesus Koch MD [address] [place] [address] Phone: tel: fax: Referral ID Status Reason Start Date Expiration Date Visits Requested Visits Authorized [id number] Canceled Specialty Services Required 05/31/2023 05/30/2024 1 1 Encounter Details Date Type Department Care Team ([facility] st Contact Info) Description 05/31/2023 Orders Only [facility] MED & PEDS [address] [place], [place] [phone] Jesus Koch MD [address] [place] [address] Neoplasm of uncertain behavior (Primary Dx) Social History Tobacco Use Types Packs/Day Years Used Date Smoking Tobacco: Former Cigarettes Q uit: 03/22/2012 Passive Smoke Exposure: Past Smokeless Tobacco: Never Alcohol Use Standard Drinks/Week Comments Never 0 (1 standard drink = 0.6 oz pur e alcohol) Depression Answer Date Recorded Patient Health Questionnaire-9 Score 1 06/25/2022 Housing Stability Answer Date Recorded What is your housing situation today? I have margareth rosado 01/30/[address] you li ve. Do you have problems with any of the following? None of the above 01/30/2023 Food Insecurity Answer Date Recorded Within the past 12 months, y ou worried that your food would run out before you got money to buy more: Never True 01/30/2023 Within the past 12 months,th e food you bought just didn't last and you didn't have enough money to get more: Never True 01/2023 Transportation Answer Date Recorded In the past 12 months, has l ack of transportation kept you from medical appts, meetings, work or from getting things needed for daily living? No 01/30/2023 Utilities Answer Date Recorded In the past 12 months, has t he electric, gas, oil or water company threatened to shut off services in your home? No 01/30/2023 Depression Answer Date Recorded Patient Health Questionnaire-2 Score 0 06/25/2022 Comments Unknown Sex and Gender Information Value Date Recorded Sex Assigned at Female 01/19/2022 10:22 AM EDT Legal Sex Female 10:22 AM EDT Gender Identity Female 01/19/2022 10:22 AM EDT Sexual Orientation Straight 01/19/2022 10 :22 AM EDT documented as of this encounter Plan of Treatment Upcoming Encounters Date Type Department Care Team ([facility] Contact Info) Description 08/04/2024 1:00 PM EDT Office Visit [facility] CHC MED & PEDS [address] [place] [address] Rebekah Condon MD [address] [place] [address] 12/11/2024 10:00 AM EDT Office Visit [facility] ADULT DENTAL [address] [place] [address] Ezekiel Koch Scheduled Referrals Name Type Priority Associated Diagnoses Orde r Schedule Referral to Physical Therapy Outpatient Referral Routine Neoplasm of uncertain behavior Expected: 05/31/2023 (Approximate), Expires: 05/30/2024 Referral to Plastic Surgery Outpatient Referral Routine Neoplasm of uncertain behavior Expected: 06/14/2023 (Approximate), Expires: 06/13/2024 documented as of this encounter Procedures Procedure Name Priority Date/Time Associated Diagnosis Comments COMPREHENSIVE METABOLIC PANEL, FASTING Routine 05/31/2023 8:06 AM EDT Neoplasm of uncertain behavior TSH W/REFLEX TO FT4 Routine 05/31/2023 8 :06 AM EDT Neoplasm of uncertain behavior CBC WITH AUTO DIFFERENTIAL Routine 05/31/2023 8:06 AM EDT Neoplasm of uncertain behavior LIPID PANEL, STANDARD Routine 05/31/2023 8:06 AM EDT Neoplasm of uncertain behavior documented in this encounter Results * TSH with Reflex to Free T4 (05/31/2023 8:06 AM EDT) TSH reflex Free T4 1.71 0.32 - 4.0 uIU/mL [facility] 05/31/2023 8:06 AM EDT 05/31/2023 2:07 PM EDT us Rebekah Condon MD LAB BLOOD ORDERABLES Final Re sult [facility] [address] [place] [address] [phone] * (ABNORMAL) Lipid Panel, Standard (05/31/2023 8:06 AM EDT) Triglycerides 120 <150 mg/dL [facility] Comment:Desirable Triglyceri de: less than 150 mg/dLBorderline High Triglyceride 150-199 mg/dLHigh Triglyceride: 200-499 mg/dLVery High Triglyceride: greater than or equal to 5OO mg/dL Cholesterol 183 <200 mg/dL [facility] Comment:Desirable Cholestero l: less than 200 mg/dLBorderline High Cholesterol: 200-239 mg/dLHigh Cholesterol: greater than 239 mg/dL LDL Cholesterol Calculated 119(H) <100 mg/dL [facility] Comment:Desirable LDL: less than 100 mg/dLNear Optimal/Above Optimal LDL: 110- 129 mg/dLBorderline High LDL: 130-159 mg/dLHigh LDL: 160-189 mg/dLVery High LDL: greater than or equal to 190 mg/dL HDL Cholesterol 40(L) >40 mg/dL [facility] Comment:Desirable HDL: great er than 40 mg/dL Note: This HDL assay may give artificially low results in patients with liver disease. 05/31/2023 8:06 AM EDT 05/31/2023 2:07 PM EDT us Rebekah Condon MD LAB BLOOD ORDERABLES Final Re sult [facility] [address] [place] [address] [phone] * Comprehensive Metabolic Panel, Fasting (05/31/2023 8:06 AM EDT) Sodium 145 135 - 145 mmol/L [facility] Potassium 3.8 3.3 - 5.1 mmol/L [facility] Chloride 107 96 - 108 mmol/L [facility] Carbon Dioxide 27 22 - 29 mmol/L [facility] Anion Gap 15 12 - 20 [facility] Urea Nitrogen (BUN) 13 9 - 16 mg/dL [facility] Creatinine, Serum 0.89 0.5 - 1.4 mg/dL [facility] Estimated Glomerular Filt Rate >60 [facility] Comment:NOTE: For -Am erican individuals, multiply the result by 1.210.Chronic Kidney Disease: Estimated GFR < 60 mL/min/1.28a7Sniuas Kidney Disease: Estimated GFR < 15 mL/min/1.73m2 Glucose Fasting 75 60 - 99 mg/dL [facility] Calcium 9.6 8.4 - 10.2 mg/dL [facility] Bilirubin, Total 0.6 0.0 - 1.0 mg/dL [facility] Aspartate Amino Transferase 14 5 - 31 U/L [facility] Alanine Aminotransferase 8 0 - 31 U/L [facility] Total Protein 7.4 6.5 - 8.0 g/dL [facility] Albumin Level 4.4 3.5 - 5.0 g/dL [facility] Alkaline Phosphatase 91 39 - 117 U/L [facility] 05/31/2023 8:06 AM EDT 05/31/2023 2:07 PM EDT us Rebekah Condon MD LAB BLOOD ORDERABLES Final Re sult [facility] [address] [place] [phone] * (ABNORMAL) CBC auto differential (05/31/2023 8:06 AM EDT) White Blood Count 7.8 4.8 - 10.8 X10*3/uL [facility] Red Blood Count 5.10 4.20 - 5.50 X10*6/uL [facility] Hemoglobin 15.3 12.0 - 16.0 g/dl [facility] Hematocrit 46.9 37.0 - 47.0 % [facility] Mean Corpuscular Volume 92.0 80.0 - 98.0 fL [facility] Mean Corpuscular Hemoglobin 30.0 27.0 - 33.0 pg [facility] Mean Corpuscular HGB Conc 32.6 31.0 - 35.0 g/dl [facility] Red Cell Distribution Width 13.3 11.0 - 16.0 % [facility] Platelet Count 223 160 - 400 X10*3/uL [facility] Mean Platelet Volume 10.1 9.4 - 12.3 fL [facility] Neutrophils Percent Auto 43.8(L) 45 - 73 % [facility] Imm Gran Pct Auto 0.3 0.0 - 0.4 % [facility] Lymphocytes Percent Auto 41.1(H) 20 - 40 % [facility] Monocytes Percent Auto 8.2 2 - 11 % [facility] Eosinophils Percent Auto 5.4(H) 0 - 4 % [facility] Basophils Percent Auto 1.2 0 - 2 % [facility] NRBC Pct Auto 0.0 0.0 - 0.2 /100WBC [facility] Neutrophils Absolute Auto 3.4 2.0 - 8.3 x10*3/uL [facility] Imm Gran Abs Auto 0.02 0.00 - 0.03 X10*3/uL [facility] Lymphocytes Absolute Auto 3.2 1.2 - 4.9 X10*3/uL [facility] Monocytes Absolute Auto 0.6 0.1 - 1.2 X10*3/uL [facility] Eosinophils Absolute Auto 0.4 0.0 - 0.4 X10*3/uL [facility] Basophils Absolute Auto 0.1 0.0 - 0.2 X10*3/uL [facility] NRBC Abs Auto 0.000 0.0 - 0.012 X10*3/uL [facility] 05/31/2023 8:06 AM EDT 05/31/2023 2:07 PM EDT us Rebekah Condon MD LAB BLOOD ORDERABLES Final Re sult [facility] [address] [place] [address] [phone] documented in this encounter Visit Diagnoses Diagnosis 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
--- OUTSIDE RECORDS SUMMARY | 2024-07-25 08:10 | XMS_ITS | Encounter Summary ---
Author Organization [employer] Address [address] [facility] [address] [place] [address] Care Team Providers Care School Nurse Name Role Phone Rebekah Condon MD Primary Care Provider [phone] Reason for Visit * Reason Comments Med Change Request Encounter Details Date Type Department Care Team (Late Contact Info) Description 06/25/2022 Refill [facility] MED & PEDS [address] [place], [place] [phone] Rebekah Condon MD [address] [place] [address] Social History Tobacco Use Types Packs/Day Years [...] Orientation Straight 01/19/2022 10 :22 AM EDT COVID-19 Exposure Response Date Recorded In the last 10 days, have yo u been in contact with someone who was confirmed or suspected to have Coronavirus/COVID-19? No / Unsure 06/25/2022 9:51 AM EDT documented as of this encounter Plan of Treatment Upcoming Encounters Date Type Department Care Team (Late Contact Info) Description 08/04/2024 1:00 PM EDT Office Visit [facility] MED & PEDS [address] [place] [address] Rebekah Condon MD [address] [place] [address] 12/11/2024 10:00 AM EDT Office Visit [facility] ADULT DENTAL [address] [place] [address] Ezekiel Koch documented as of this encounter Visit Diagnoses Not on filedocumented in this encounter Additional Health Concerns Assessment Noted Time PHQ-9 Depression Total Score: 1 06/26/19 23 10:02 AM EDT documented as of this encounter Care Teams School Nurse Relationship Specialty Start Date End Date Rebekah Condon MD [address] [place] [phone] PCP - General Family Medicine 10/13/21 documented as of this encounter
--- OUTSIDE RECORDS SUMMARY | 2024-07-25 08:10 | XMS_ITS | Encounter Summary ---
Author Organization [employer] Address [address] [facility] [address], [place] [address] Care Team Providers Care Dialysis Rn Name Role Phone Rebekah Condon MD Primary Care Provider [phone] Encounter Details Date Type Department Care Team (Late st Contact Info) Description 03/19/2022 Telephone [facility] MED & PEDS [address] [place] [address] Rebekah Condon MD [address] [place] [address] Social History Tobacco Use Types Packs/Day Years [...] 1:00 PM EDT Office Visit [facility] MED & PEDS [address] [place] [address] Rebekah Condon MD [address] [place] [address] 12/11/2024 10:00 AM EDT Office Visit [facility] ADULT DENTAL [address] [place] [address] Ezekiel Koch documented as of this encounter Visit Diagnoses Not on filedocumented in this encounter Care Teams Dialysis Rn Relationship Specialty Start Date End Date Rebekah Condon MD [address] [place] [address] PCP - General Family Medicine 10/13/21 documented as of this encounter
[2024-07-25 14:21] LABS: MANUAL DIFF FLAG NO
[2024-07-25 14:31] LABS: Basophils Absolute Auto 0.1 X10*3/uL (0.0-0.2); Eosinophils Absolute Auto 0.4 X10*3/uL (0.0-0.4); Eosinophils Percent Auto 4.6 % (0-4); Hematocrit 42.3 % (37.0-47.0); Hemoglobin 13.7 g/dl (12.0-16.0); Imm Gran Abs Auto 0.02 X10*3/uL (0.00-0.03); Imm Gran Pct Auto 0.2 % (0.0-0.4); Lymphocytes Absolute Auto 3.1 X10*3/uL (1.2-4.9); Lymphocytes Percent Auto 34.8 % (20-40); Mean Corpuscular HGB Conc 32.4 g/dl (31.0-35.0); Mean Corpuscular Hemoglobin 29.1 pg (27.0-33.0); Mean Corpuscular Volume 89.8 fL (80.0-98.0); Mean Platelet Volume 10.2 fL (9.4-12.3); Monocytes Absolute Auto 0.7 X10*3/uL (0.1-1.2); Monocytes Percent Auto 8.1 % (2-11); Neutrophils Absolute Auto 4.5 x10*3/uL (2.0-8.3); Neutrophils Percent Auto 51.3 % (45-73); Platelet Count 223 X10*3/uL (160-400); Red Blood Count 4.71 X10*6/uL (4.20-5.50); Red Cell Distribution Width 15.1 % (11.0-16.0); White Blood Count 8.9 X10*3/uL (4.8-10.8)
[2024-07-25 15:07] LABS: Iron 72 mcg/dL (30-160); Percent Iron Saturation 26 % (15-50); Total Iron Binding Capacity 275 mcg/dL (228-428); Unsaturated Iron Binding 203 ug/dL
[2024-07-25 15:13] LABS: Ferritin 121 ng/mL (10-250); TSH reflex Free T4 17.08 uIU/mL (0.32-4.0)
[2024-07-25 15:31] LABS: Folate 4.3 ng/mL (> or = 4.0); Vitamin B12 274 pg/mL (200-900)
[2024-07-25 20:06] LABS: Free T4 (Free Thyroxine) 1.02 ng/dL (0.71-1.85)
== END 2024-07-25 08:05 | disposition home or self-care (01) ==
LOC: HO.CHCLDS 08:04
PROVIDERS: Visit Provider Family Medicine
DX: G25.81 Restless legs syndrome (principal); R79.9 Abnormal finding of blood chemistry, unspecified; R74.8 Abnormal levels of other serum enzymes; E03.9 Hypothyroidism, unspecified
CPT/HCPCS: 36415; 82607; 82728; 82746; 83540; 84439; 84443; 85025

== ENCOUNTER 2024-10-31 14:08 | Outpatient (REF) | payer MEDICARE, SELFPAY ==
--- OUTSIDE RECORDS SUMMARY | 2024-10-31 15:07 | XMS_ITS | Encounter Summary ---
Author Organization [employer] Address [address] [facility] [address] [place] [address] Care Team Providers Care Staff Registered Nurse Name Role Phone Rebekah Condon MD Primary Care Provider [phone] Reason for Visit * Reason Onset Date Comments Appointment Request 04/24/2024 Encounter Details Date Type Department Care Team ([facility] st Contact Info) Description 04/24/2024 Telephone [facility] CH[facility] MED & PEDS [address] [place], [place] [phone] Rebekah Condon MD [address] [place] [address] Appointment Request Social History Tobacco Use Types [...] Care Team (Late st Contact Info) Description 12/11/2024 10:00 AM EDT Office Visit [facility] CHC ADULT DENTAL [address] [place] [address] Ezekiel Koch documented as of this encounter Visit Diagnoses Not on filedocumented in this encounter Additional Health Concerns Assessment Noted Time PHQ-9 Depression Total Score: 0 08/26/19 24 11:34 AM EDT documented as of this encounter Care Teams Staff Registered Nurse Relationship Specialty Start Date End Date Rebekah Condon MD [address] [place] [address] PCP - General Family Medicine 10/13/21 documented as of this encounter
== END 2024-10-31 14:09 | disposition home or self-care (01) ==
LOC: HO.CHCLDS 14:08
PROVIDERS: Visit Provider Family Medicine
DX: E03.9 Hypothyroidism, unspecified (principal)
CPT/HCPCS: 36415; 84443